=== PATIENT | male | born 1970 | race Two or more races ===

== ENCOUNTER 2021-12-31 17:53 | Emergency (ER) | payer OTHER ==
[~2021-12-31] VITALS: Ht 177.8 cm; Wt 103.9 kg
[2021-12-31] MEDS ORDERED: LIDO700A20 TOP (20:09)
[2021-12-31] MEDS ORDERED: Robaxin750 MG PO (20:09)
== END 2021-12-31 20:18 | disposition home or self-care (01) ==
LOC: ER 17:53
DX: M54.31 Sciatica, right side (principal); F17.210 Nicotine dependence, cigarettes, uncomplicated
CPT/HCPCS: A9270; J1885